=== PATIENT | male | born 1970 | race Caucasian/White ===

== ENCOUNTER 2017-01-03 22:51 | Emergency (ER) | payer OTHER ==
[~2017-01-03] VITALS: Ht 180.3 cm; Wt 176.9 kg
[2017-01-03] MEDS ORDERED: BACTROBAN CREAM15 GM TP (23:32)
[2017-01-03] MEDS ORDERED: CLEOCIN300 MG PO (23:32)
[2017-01-03 23:38] VITALS: BP 130/84
== END 2017-01-03 23:39 | disposition home or self-care (01) ==
LOC: EME 22:51
DX: S81.802A Unspecified open wound, left lower leg, initial encounter (principal); X58.XXXA Exposure to other specified factors, initial encounter; L03.116 Cellulitis of left lower limb; R60.0 Localized edema; Z88.0 Allergy status to penicillin; F17.200 Nicotine dependence, unspecified, uncomplicated
CPT/HCPCS: 99281; 99283

== ENCOUNTER 2017-09-06 10:46 | Observation (INO) | payer OTHER ==
[~2017-09-06] VITALS: Ht 180.3 cm; Wt 189.1 kg
[~2017-09-06 10:46] MED LIST: BACTROBAN CREAM15 GM TP; CLEOCIN300 MG PO
[2017-09-06 11:09] LABS: HEMATOCRIT 42.7 % (38.0-50.0); HEMOGLOBIN 14.4 G/DL (12.5-16.6); MCH 34.7 PG (29.0-34.0); MCHC 33.7 G/DL (30.0-36.0); MCV 102.9 FL (86-99); PLATELET COUNT 205 K/uL (156-360); RBC DIS.WIDTH-CV 13.4 % (11.8-14.6); RBC DIS.WIDTH-SD 51.6 % (39-53); RED BLOOD COUNT 4.15 M/uL (4.00-5.50); WHITE BLOOD COUNT 8.5 K/uL (4.1-10.2)
[2017-09-06 11:18] LABS: CHLORIDE 106 mEq/L (99-109); SODIUM 143 mEq/L (136-147)
[2017-09-06 11:20] LABS: GLUCOSE 156 mg/dL (70-99)
[2017-09-06 11:23] LABS: CREATININE 0.9 mg/dL (0.6-1.3); GFR ESTIMATE (CALCULATED) > 59 mL/min/ (58.99-99999)
[2017-09-06 11:24] LABS: UREA NITROGEN (BUN) 14 mg/dL (9-23)
[2017-09-06 11:30] LABS: TROP-I INTERPRETATION NEGATIVE; TROPONIN-I < 0.01 ng/mL (0.0-0.30)
[2017-09-06] MEDS ORDERED: ASPIRIN81 M2 PO (13:50)
[2017-09-06] MEDS ORDERED: FENOFIBRATE54 M1 PO (13:51)
[2017-09-06] MEDS ORDERED: SIMVASTATIN10 MG PO (13:52)
[2017-09-06] MEDS ORDERED: QUETIAPINE FUM200 MG PO (13:52)
[2017-09-06] MEDS ORDERED: VENLAFAXINE HC150 M1 PO (13:53)
[2017-09-06] MEDS ORDERED: EFFEXOR75 MG PO (13:54)
[2017-09-06] MEDS ORDERED: TRAZODONE HCL100 MG PO (13:54)
[2017-09-06] MEDS ORDERED: EFFEXOR XR75 MG PO (14:33)
[2017-09-06] MEDS ORDERED: NEOSPORIN + P28.3 GM TP (14:34)
[2017-09-06] MEDS ORDERED: ONE DAILY1 EAC3 PO (14:34)
[2017-09-06] MEDS ORDERED: ALEVE220 MG PO (14:35)
[2017-09-06 16:02] VITALS: BP 116/53
[2017-09-06 17:39] LABS: TROP-I INTERPRETATION NEGATIVE; TROPONIN-I < 0.01 ng/mL (0.0-0.30)
[2017-09-06 19:34] VITALS: BP 128/78
[2017-09-06 23:34] VITALS: BP 143/72
[2017-09-07 00:01] LABS: TROP-I INTERPRETATION NEGATIVE; TROPONIN-I < 0.01 ng/mL (0.0-0.30)
[2017-09-07 03:57] VITALS: BP 150/77
[2017-09-07 05:55] LABS: HEMATOCRIT 45.4 % (38.0-50.0); HEMOGLOBIN 14.4 G/DL (12.5-16.6); MCH 32.9 PG (29.0-34.0); MCHC 31.7 G/DL (30.0-36.0); MCV 103.7 FL (86-99); PLATELET COUNT 217 K/uL (156-360); RBC DIS.WIDTH-CV 13.3 % (11.8-14.6); RBC DIS.WIDTH-SD 51.1 % (39-53); RED BLOOD COUNT 4.38 M/uL (4.00-5.50); WHITE BLOOD COUNT 7.2 K/uL (4.1-10.2)
[2017-09-07 06:13] LABS: ALBUMIN 4.1 G/DL (3.2-4.8); ALKALINE PHOSPHATASE 69 IU/L (3-129); ALT (GPT) 27 IU/L (3-49); AST (GOT) 16 IU/L (2-34); CHLORIDE 104 MEQ/L (99-109); CREATININE 0.9 MG/DL (0.6-1.3); GFR ESTIMATE (CALCULATED) > 59 mL/min/ (58.99-99999); GLUCOSE 145 mg/dL (70-99); HDL CHOLESTEROL 29 MG/DL (Desirable>=40); LDL CHOLESTEROL 62 mg/dL (Desirable<100); NON-HDL CHOLESTEROL 107 mg/dL (Desirable<160); POTASSIUM 4.4 MEQ/L (3.7-5.4); SODIUM 141 MEQ/L (136-147); TOTAL BILIRUBIN 0.3 MG/DL (0.0-1.0); TOTAL CHOLESTEROL 136 mg/dL (Desirable<200); TOTAL PROTEIN 6.6 G/DL (6.4-8.3); TRIGLYCERIDES 225 MG/DL (Normal: <150); UREA NITROGEN (BUN) 13 mg/dL (9-23)
[2017-09-07 08:27] VITALS: BP 121/65
[2017-09-07] MEDS ORDERED: NITROSTAT0.4 MG SL (08:54)
[2017-09-07 10:54] LABS: HEMOGLOBIN A1c (GLYCOHEMOGLOB) 6.2 % (Below 5.7)
== END 2017-09-07 11:16 | disposition home or self-care (01) ==
LOC: EME 10:46 → EDOF 14:02 → ENRESERV 14:05 → 4SOUTH 15:46
PROVIDERS: Internal Medicine
DX: R07.9 Chest pain, unspecified (principal); G47.33 Obstructive sleep apnea (adult) (pediatric); R91.1 Solitary pulmonary nodule; R60.0 Localized edema; M79.89 Other specified soft tissue disorders; E66.01 Morbid (severe) obesity due to excess calories; I10 Essential (primary) hypertension; Z68.43 Body mass index [BMI] 50.0-59.9, adult; E78.5 Hyperlipidemia, unspecified; R73.03 Prediabetes; F17.200 Nicotine dependence, unspecified, uncomplicated; Z79.82 Long term (current) use of aspirin; Z82.49 Family history of ischemic heart disease and other diseases of the circulatory system; Z88.0 Allergy status to penicillin; Z88.8 Allergy status to other drugs, medicaments and biological substances
CPT/HCPCS: 71046; 71275; 80048; 80053; 80061; 83036; 83880; 84484; 85027; 93005; 93971; 99281; 99285; G0378; J1644; J3370

== ENCOUNTER 2017-09-13 14:34 | Emergency (ER) | payer OTHER ==
[~2017-09-13] VITALS: Ht 180.3 cm; Wt 189.2 kg
[~2017-09-13 14:34] MED LIST changes: +ALEVE220 MG PO; +ASPIRIN81 M2 PO; +EFFEXOR XR75 MG PO; +EFFEXOR75 MG PO; +FENOFIBRATE54 M1 PO; +NEOSPORIN + P28.3 GM TP; +NITROSTAT0.4 MG SL; +ONE DAILY1 EAC3 PO; +QUETIAPINE FUM200 MG PO; +SIMVASTATIN10 MG PO; +TRAZODONE HCL100 MG PO; +VENLAFAXINE HC150 M1 PO
[2017-09-13 18:21] VITALS: BP 161/101
== END 2017-09-13 18:33 | disposition home or self-care (01) ==
LOC: EME 14:34
DX: F32.9 Major depressive disorder, single episode, unspecified (principal); R45.851 Suicidal ideations; I10 Essential (primary) hypertension; R73.03 Prediabetes; F41.9 Anxiety disorder, unspecified; F43.10 Post-traumatic stress disorder, unspecified; F31.9 Bipolar disorder, unspecified; F17.200 Nicotine dependence, unspecified, uncomplicated; Z88.0 Allergy status to penicillin; Z88.8 Allergy status to other drugs, medicaments and biological substances; Z95.9 Presence of cardiac and vascular implant and graft, unspecified; Z79.82 Long term (current) use of aspirin
CPT/HCPCS: 90839; 99281; 99283

== ENCOUNTER → 2017-10-08 | Outpatient (CLI) | payer OTHER | END | disposition home or self-care (01) | LOC: NUC 09-17 07:30 | DX: R94.39 Abnormal result of other cardiovascular function study (principal); I10 Essential (primary) hypertension; E78.5 Hyperlipidemia, unspecified; E66.01 Morbid (severe) obesity due to excess calories; F17.210 Nicotine dependence, cigarettes, uncomplicated; Z82.49 Family history of ischemic heart disease and other diseases of the circulatory system | CPT/HCPCS: 78452; 78999; 93017; A9500; J2785 ==